=== PATIENT | male | born 2000 | race Caucasian/White ===

== ENCOUNTER 2020-06-14 20:00 | Emergency (ER) | payer BC ==
[~2020-06-14] VITALS: Ht 172.7 cm; Wt 63.5 kg
[2020-06-14 20:01] VITALS: BP 122/78
--- NOTE | 2020-06-14 20:21 | NUR ---
DR RAMON AT BEDSIDE FOR EVAL
--- NOTE | 2020-06-14 20:35 | NUR ---
Patient discharged to home in stable condition. Written and verbal after care instructions given. Patient verbalizes understanding of instruction.
== END 2020-06-14 20:36 | disposition home or self-care (01) ==
LOC: ER 20:14
DX: H10.9 Unspecified conjunctivitis (principal)